=== PATIENT | male | born 1995 | race Hispanic/Latino ===

== ENCOUNTER 2018-03-23 05:30 | Day surgery (SDC) | payer MEDICAID ==
[~2018-03-23] VITALS: Ht 188 cm; Wt 118.9 kg
[~2018-03-23 05:30] MED LIST: DIVA500T2 PO; ESOM40CA PO; HYDR-3422 PO; QUET400T3 PO; QUET400T54 PO; SERT100T12 PO; TOPI25CA2 PO; TRAZ-187 PO
[2018-03-23] MEDS ORDERED: SODIUM CHLORIDE 0.9% 1000ML 1,000 ML IV ONE (05:46)
[2018-03-23 05:58] VITALS: BP 126/67
[2018-03-23] MEDS ORDERED: PROPOFOL 1000 MG/100 ML 100 ML IV ONE (06:36)
[2018-03-23 07:02] VITALS: BP 99/52
[2018-03-23 07:07] VITALS: BP 107/53
[2018-03-23 07:15] VITALS: BP 119/76
== END 2018-03-23 07:24 | disposition home or self-care (01) ==
LOC: DAH 05:30 → ENDO 05:30
PROVIDERS: ATTEND Internal Medicine
DX: K64.0 First degree hemorrhoids (principal); K52.89 Other specified noninfective gastroenteritis and colitis; K21.0 Gastro-esophageal reflux disease with esophagitis; K29.50 Unspecified chronic gastritis without bleeding; K31.89 Other diseases of stomach and duodenum; K22.8 Other specified diseases of esophagus; F41.9 Anxiety disorder, unspecified; F32.9 Major depressive disorder, single episode, unspecified; Z68.35 Body mass index [BMI] 35.0-35.9, adult; Z90.49 Acquired absence of other specified parts of digestive tract; Z79.899 Other long term (current) drug therapy; K21.9 Gastro-esophageal reflux disease without esophagitis; R56.9 Unspecified convulsions; F79 Unspecified intellectual disabilities
CPT/HCPCS: 43239; 45380; 88305; A4606; J2704; J7030